=== PATIENT | male | born 1990 | race Caucasian/White ===

== ENCOUNTER 2022-08-15 07:46 | Emergency (ER) | payer MEDICAID ==
[~2022-08-15] VITALS: Ht 185.4 cm; Wt 94.5 kg
[2022-08-15 07:47] VITALS: BP 124/50
--- NOTE | 2022-08-15 07:54 | NUR ---
PT AMB TO BED 12.
--- NOTE | 2022-08-15 08:19 | NUR ---
32M presents to ED with c/o right eyebrow laceration s/p slip and fall last night. Pt reports stepping out of the shower when slipped and fell, laceration to right eyebrow. Pt denies LOC, dizziness, change of vision. Pt reports applying skin glue to laceration last night, denies taking medication today.
[2022-08-15] MEDS ORDERED: ACETAMINOPHEN 325 MG TAB PO ONE (08:25)
--- NOTE | 2022-08-15 08:36 | NUR ---
Patient discharged with v/s stable. Written and verbal after care instructions about head injury, laceration care given and explained. Patient verbalized understanding. Ambulatory with steady gait. All questions addressed prior to discharge. Advised to follow up with PMD.
== END 2022-08-15 09:36 | disposition home or self-care (01) ==
LOC: MED 07:46
DX: S01.111A Laceration without foreign body of right eyelid and periocular area, initial encounter (principal); W18.30XA Fall on same level, unspecified, initial encounter; Y93.89 Activity, other specified; Y92.89 Other specified places as the place of occurrence of the external cause; Y99.8 Other external cause status
CPT/HCPCS: 99282

== ENCOUNTER 2022-09-20 11:56 | Inpatient (IN) | payer MEDICAID ==
[~2022-09-20] VITALS: Ht 180.3 cm; Wt 94.8 kg
[2022-09-20 11:57] VITALS: BP 101/55
[2022-09-20] MEDS ORDERED: levETIRAcetam 1,000 MG in NACL 0.9% 100 ML IV ONE (12:35)
[2022-09-20] MEDS ORDERED: NACL 0.9% 1,000 ML IV ONE (12:35)
--- NOTE | 2022-09-20 12:37 | NUR ---
SHADI SWAB COLLECTED AND WALKED TO LAB
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
[2022-09-20 13:02] LABS: BASOPHILS % (AUTO) 0.1 % (0.0-2.0); HEMATOCRIT 43.5 % (36-52); HEMOGLOBIN 14.6 g/dL (12.0-18.0); LYMPHOCYTES # (AUTO) 0.5 K/uL (2.0-11.5); LYMPHOCYTES % (AUTO) 5.3 % (20.5-51.1); MEAN CORPUSCULAR HEMOGLOBIN 33 pg (27-31); MEAN CORPUSCULAR HGB CONC 34 g/dL (33-37); MEAN CORPUSCULAR VOLUME 96.6 fL (80-94); MONOCYTES # (AUTO) 0.4 K/uL (0.8-1.0); MONOCYTES % (AUTO) 4.2 % (1.7-9.3); NEUTROPHILS # (AUTO) 7.8 K/uL (1.8-7.7); NEUTROPHILS % (AUTO) 90.4 % (42.2-75.2); PLATELET COUNT (AUTO) 123 K/uL (140-450); RED CELL DISTRIBUTION WIDTH 12.4 % (11.6-13.7); WHITE BLOOD COUNT (AUTO) 8.6 K/uL (4.8-10.8)
[2022-09-20 13:28] LABS: ALBUMIN 3.8 g/dL (3.4-5.0); ANION GAP 12.5 (8-16); CARBON DIOXIDE 25.5 mmol/L (21-32); CREATININE 0.9 mg/dL (0.6-1.3); TOTAL BILIRUBIN 0.5 mg/dL (0.0-1.0)
[2022-09-20] MEDS ORDERED: LEVE500T9 PO (14:08)
--- NOTE | 2022-09-20 14:18 | NUR ---
PATIENT OPENING EYES SPONTANEOUSLY, WITHDRAWING FROM PAIN, NOT ANSWERING QUESTIONS AT THIS TIME.
[2022-09-20] MEDS ORDERED: KEP500 PO (14:30)
--- NOTE | 2022-09-20 14:52 | NUR ---
PATIENT UNABLE TO PROVIDE URINE AT THIS TIME, DR. VÁSQUEZ MADE AWARE
--- NOTE | 2022-09-20 15:05 | NUR ---
PATIENT AWAKE AND ORIENTED X4, ANSWERING QUESTIONS APPROPRIATELY, DENIES ANY MEDICAL COMPLAINTS AT THIS TIME.
--- NOTE | 2022-09-20 18:00 | NUR ---
PATIENT PROVIDED WITH DINNER TRAY, STATES "IM NOT HUNGRY RIGHT NOW." TRAY LEFT WITHIN REACH OF PATIENT, ALL NEEDS MET AT THIS TIME.
[2022-09-20] MEDS ORDERED: LORazepam 2 MG/ML VIAL IVP PRN (18:10)
[2022-09-20] MEDS ORDERED: DEXT 5% /NACL 0.9% 1,000 ML IV SCH (18:20)
[2022-09-20] MEDS ORDERED: DOCUSATE SODIUM 100 MG GELCAP PO PRN (18:20)
[2022-09-20] MEDS ORDERED: POTASSIUM CHLORIDE 10 MEQ TABER PO PRN (18:20)
[2022-09-20] MEDS ORDERED: ACETAMINOPHEN 325 MG TAB PO PRN (18:20)
[2022-09-20] MEDS ORDERED: guaiFENesin DM 200/20 MG-10 ML 10 ML UDC PO PRN (18:20)
[2022-09-20] MEDS ORDERED: ONDANSETRON 4 MG/2 ML VIAL IM/IVP PRN (18:20)
[2022-09-20] MEDS ORDERED: HYDROcodone/APAP 7.5/325 MG 1 TAB PO PRN (18:20)
[2022-09-20] MEDS ORDERED: ZOLPIDEM 5 MG TAB PO PRN (18:20)
[2022-09-20 18:51] LABS: PROTHROMBIN TIME 10.5 secs (10.8-13.4)
[2022-09-20 18:59] LABS: AMYLASE 181 U/L (25-115); CHOL/HDL RATIO 2.1 (1-4.5); FREE T4 (FREE THYROXINE) 0.88 ng/dL (0.76-1.46); HDL CHOLESTEROL 63 mg/dL (40-60); LDL (CALC) 61 mg/dL (60-100); LIPASE 68 U/L (73-393); MAGNESIUM 1.8 mg/dL (1.8-2.4); PHOSPHORUS 3.2 mg/dL (2.5-4.9); THYROID STIMULATING HORMONE 0.59 uIU/mL (0.34-3.74); TRIGLYCERIDES 36 mg/dL (30-150)
[2022-09-20 19:00] LABS: APPEARANCE,URINE CLOUDY (CLEAR); BILIRUBIN,URINE NEGATIVE (NEGATIVE); BLOOD, URINE NEGATIVE (NEGATIVE); COLOR,URINE AMBER (YELLOW); LEUKOCYTE ESTERASE ,URINE NEGATIVE (NEGATIVE); NITRITE, URINE NEGATIVE (NEGATIVE); PH,URINE 5.5 (5.0-9.0); UGLUCOSE NEGATIVE (NEGATIVE)
[2022-09-20 19:09] LABS: BARBITURATE, URINE NEGATIVE ng/ml (NEG <=200); BENZODIAZEPINE, URINE NEGATIVE ng/mL (NEG <=200)
[2022-09-20 19:10] LABS: CANNABINOID, URINE POSITIVE ng/mL (NEG <=50); COCAINE, URINE NEGATIVE ng/mL (NEG <=300); OPIATE, URINE NEGATIVE ng/mL (NEG <=2000); PHENCYCLIDINE SCREEN,URINE NEGATIVE ng/mL (NEG <=25)
--- NOTE | 2022-09-20 19:26 | NUR ---
Pt report given to BRITTANEY CONDON. Transfer of care at this time.
[2022-09-20] MEDS ORDERED: levETIRAcetam 500 MG TAB PO SCH (21:00)
[2022-09-20 22:00] VITALS: BP 115/51
--- NOTE | 2022-09-20 22:24 | NUR ---
Patient will be admitted to care of [facility]. Admited to [facility]. Will go to [id number]. Belongings list completed. Report to KATHY.
--- NOTE | 2022-09-20 23:12 | NUR ---
GET THE REPORT FROM ER NURSE, PATIENT IS LYING ON BED, PATIENT IS ALERT ORIENTED X4, NO ANY COMPLAIN OF PAIN OR SHORTNESS OF BREATH AT THIS TIME, VITAL SIGN IS WITHIN THE NORMAL RANGE,ALL FALL AND SEIZURE PRECAUTION ARE IN PLACE, ALL SCHEDULE MEDICATION IS GIVEN PER DOCTOR ORDER, CALL LIGHT IS WITHIN THE REACH, WILL CONTINUE TO MONITOR PATIENT.
--- NOTE | 2022-09-21 00:06 | NUR ---
PATIENT IS LYING ON BED, NO ANY COMPLAIN OF PAIN OR SHORTNESS OF BREATH AT THIS TIME, VITAL SIGN IS WITHIN THE NORMAL RANGE, CALL LIGHT IS WITHIN THE REACH, WILL CONTINUE TO MONITOR PATIENT.
[2022-09-21 04:00] VITALS: BP 121/67
--- NOTE | 2022-09-21 04:08 | NUR ---
VITAL SIGN IS WITHIN THE NORMAL RANGE, NO SEIZURE ACTIVITY NOTED , NO ANY COMPLAIN OF PAIN OR SHORTNESS OF BREATH AT THIS TIME, CALL LIGHT IS WITHIN THE REACH, WILL CONTINUE TO MONITOR PATIENT.
[2022-09-21 06:35] LABS: BASOPHILS % (AUTO) 0.2 % (0.0-2.0); EOSINOPHILS % (AUTO) 0.3 % (0.0-4.0); HEMATOCRIT 44.2 % (36-52); HEMOGLOBIN 15.1 g/dL (12.0-18.0); LYMPHOCYTES # (AUTO) 1.2 K/uL (2.0-11.5); LYMPHOCYTES % (AUTO) 17.1 % (20.5-51.1); MEAN CORPUSCULAR HEMOGLOBIN 33 pg (27-31); MEAN CORPUSCULAR HGB CONC 34 g/dL (33-37); MEAN CORPUSCULAR VOLUME 96.1 fL (80-94); MONOCYTES # (AUTO) 0.3 K/uL (0.8-1.0); MONOCYTES % (AUTO) 4.1 % (1.7-9.3); NEUTROPHILS # (AUTO) 5.5 K/uL (1.8-7.7); NEUTROPHILS % (AUTO) 78.3 % (42.2-75.2); PLATELET COUNT (AUTO) 124 K/uL (140-450); RED CELL DISTRIBUTION WIDTH 12.2 % (11.6-13.7)
--- NOTE | 2022-09-21 07:03 | NUR ---
GAVE THE REPORT TO MORNING NURSE ABIGAIL Smith FOR CONTINUOS OF CARE, PATIENT IS STABLE,SIGNING OFF.
[2022-09-21 07:29] LABS: ANION GAP 8.2 (8-16); CARBON DIOXIDE 30.1 mmol/L (21-32); POTASSIUM 4.3 mmol/L (3.5-5.1)
[2022-09-21 07:30] LABS: CREATININE 0.7 mg/dL (0.6-1.3)
--- NOTE | 2022-09-21 07:41 | NUR ---
PATIENT LEFT AGAINST MEDICAL ADVICE. SPOUSE OF PATIENT PRESENT TO DRIVE PATIENT HOME.
[2022-09-21 08:07] LABS: T4 (THYROXINE) 5.8 ug/dL (4.5-12.0)
[2022-09-21] MEDS ORDERED: PANTOPRAZOLE 40 MG TABEC PO SCH (09:00)
== END 2022-09-21 07:40 | disposition left against medical advice (07) | DRG 53 ==
LOC: MED 11:56 → MTU 18:06
PROVIDERS: ADMIT Family Medicine; ATTEND Family Medicine
DX: G40.901 Epilepsy, unspecified, not intractable, with status epilepticus (principal); Z20.822 Contact with and (suspected) exposure to COVID-19; Z53.29 Procedure and treatment not carried out because of patient's decision for other reasons
CPT/HCPCS: 36415; 80048; 80053; 80305; 81003; 82150; 83036; 83690; 83735; 83880; 84100; 84436; 84439; 84443; 84479; 84484; 85025; 85610; 85730; 87081; 95816; 96365; 99291; J1953

== ENCOUNTER 2023-03-21 10:48 | Inpatient (IN) | payer MEDICAID ==
[~2023-03-21] VITALS: Ht 180.3 cm; Wt 181.4 kg
[~2023-03-21 10:48] MED LIST: KEP500 PO
--- NOTE | 2023-03-21 10:52 | NUR ---
PT PLACE IN BED 09 FROM FAMILY CAR
[2023-03-21 10:53] VITALS: BP 144/67
--- NOTE | 2023-03-21 10:56 | NUR ---
Patient being evaluated by physician at bedside.
[2023-03-21] MEDS ORDERED: LORazepam 2 MG/ML VIAL IVP ONE ×2 (11:15→13:55)
[2023-03-21] MEDS ORDERED: KETOROLAC 15 MG/ML VIAL IVP ONE (11:15)
[2023-03-21 11:20] LABS: BASOPHILS % (AUTO) 0.2 % (0.0-2.0); EOSINOPHILS % (AUTO) 0.2 % (0.0-4.0); HEMATOCRIT 45.4 % (36-52); HEMOGLOBIN 15.4 g/dL (12.0-18.0); LYMPHOCYTES % (AUTO) 28.8 % (20.5-51.1); MEAN CORPUSCULAR HEMOGLOBIN 33 pg (27-31); MEAN CORPUSCULAR HGB CONC 34 g/dL (33-37); MEAN CORPUSCULAR VOLUME 96.2 fL (80-94); MONOCYTES # (AUTO) 0.4 K/uL (0.8-1.0); MONOCYTES % (AUTO) 5.5 % (1.7-9.3); NEUTROPHILS # (AUTO) 4.6 K/uL (1.8-7.7); NEUTROPHILS % (AUTO) 65.3 % (42.2-75.2); PLATELET COUNT (AUTO) 144 K/uL (140-450); RED BLOOD CELL COUNT(AUTO) 4.72 MIL/uL (4.20-6.10); RED CELL DISTRIBUTION WIDTH 12.6 % (11.6-13.7)
--- NOTE | 2023-03-21 11:30 | NUR ---
PT HAD SEIZURE FULL BODY INVOLVMENT, AIRWAY SECURE SUCTIONED SALIVA AND EMESIS, SEIZURE PRECAUTIONS OBSERVED AT ALL TIMES. MD AT BEDSIDE. PT MEDICATED ATIVAN 1MG ATIVAN GIVEN ORDERED. POSITIVE ORAL TRAUMA LEFT LOWER LIP. NO INCONTINENCE OF BOWEL OR BLADDER.
[2023-03-21] MEDS ORDERED: LORazepam 2 MG/ML VIAL ONE (11:31)
--- NOTE | 2023-03-21 11:39 | NUR ---
PT MOVED TO BED 10 VIA [facility]
--- NOTE | 2023-03-21 11:40 | NUR ---
PT SISTER DORYS WOULD LIKE TO BE UPDATED WITH CHANGES DORYS [phone]
[2023-03-21] MEDS ORDERED: ONDANSETRON 4 MG/2 ML VIAL ONE (12:03)
[2023-03-21 12:05] LABS: ALBUMIN 4.3 g/dL (3.4-5.0); ANION GAP 21.4 (8-16); CARBON DIOXIDE 19.6 mmol/L (21-32); CREATININE 0.9 mg/dL (0.6-1.3); TOTAL BILIRUBIN 0.6 mg/dL (0.0-1.0)
[2023-03-21] MEDS ORDERED: ONDANSETRON 4 MG/2 ML VIAL IVP ONE (12:05)
--- NOTE | 2023-03-21 15:13 | NUR ---
PATIENT HAS BEEN SCREENED AND CATEGORIZED LOW NUTRITION RISK. PATIENT WILL BE SEEN WITHIN 7 DAYS OF ADMISSION. 03/28/[address]
[2023-03-21] MEDS ORDERED: ACETAMINOPHEN 325 MG TAB PO PRN (16:15)
[2023-03-21] MEDS ORDERED: ONDANSETRON 4 MG/2 ML VIAL IM/IVP PRN (16:15)
[2023-03-21] MEDS ORDERED: HYDROcodone/APAP 7.5/325 MG 1 TAB PO PRN (16:15)
[2023-03-21] MEDS ORDERED: guaiFENesin DM 200/20 MG-10 ML 10 ML UDC PO PRN (16:15)
[2023-03-21] MEDS ORDERED: NACL 0.9% 1,000 ML IV SCH (16:15)
[2023-03-21] MEDS ORDERED: DOCUSATE SODIUM 100 MG GELCAP PO PRN (16:15)
[2023-03-21] MEDS ORDERED: POTASSIUM CHLORIDE 10 MEQ TABER PO PRN (16:15)
[2023-03-21] MEDS ORDERED: ZOLPIDEM 5 MG TAB PO PRN (16:15)
[2023-03-21] MEDS ORDERED: LORazepam 2 MG/ML VIAL IVP PRN (16:20)
[2023-03-21 16:25] VITALS: BP 99/55
--- NOTE | 2023-03-21 16:25 | NUR ---
PATIENT CAME ON UNIT FROM ER. GEN WEAKNESS, UNABLE TO AMBULATE TO BED AT THIS TIME. IN STABLE CONDITION. IV SITE INTACT, PATENT, AND ON SALINE LOCK. SKIN INTACT. AAOX4, CALM, COOPERATIVE. ORIENTED PATIENT TO ROOM AND CALL LIGHT. PLAN OF CARE DISCUSSED WITH PATIENT. VERBALIZED UNDERSTANDING. SAFETY MEASURES IN PLACE, CALL LIGHT WITHIN REACH. WILL CONTINUE TO MONITOR.
--- NOTE | 2023-03-21 17:13 | NUR ---
LEFT MESSAGE FOR DICK REGARDING STAT EEG ORDERED BY . DICK CALLED BACK @[id number] SPOKE WITH DEEPA PT EEG SCHEDULED FOR 03/22/2023 @9AM
[2023-03-21 17:18] LABS: CHOL/HDL RATIO 2.2 (1-4.5); MAGNESIUM 1.9 mg/dL (1.8-2.4); PHOSPHORUS 3.4 mg/dL (2.5-4.9)
[2023-03-21 17:19] LABS: FREE T4 (FREE THYROXINE) 1.05 ng/dL (0.76-1.46); THYROID STIMULATING HORMONE 0.63 uIU/mL (0.34-3.74)
[2023-03-21 17:29] LABS: PROTHROMBIN TIME 10.7 secs (10.8-13.4)
--- NOTE | 2023-03-21 17:54 | NUR ---
SCHEDULED MEDICATIONS DUE GIVEN. WILL CONTINUE TO MONITOR.
[2023-03-21] MEDS ORDERED: POTASSIUM CHLORIDE 40 MEQ, LIDOCAINE MPF 1% 25 MG in NACL 0.9% 250 ML IV SCH (18:00)
--- NOTE | 2023-03-21 19:27 | NUR ---
GAVE REPORT TO PROCESS DEVELOPER NURSE FOR CONTINUITY OF CARE. PATIENT IN STABLE CONDITION.
[2023-03-21 20:00] VITALS: BP 107/58
--- NOTE | 2023-03-21 20:00 | NUR ---
RECEIVE IN IS ALERT SPEECH IS CLZEAR NOSEIZURE ACTIVITY SEIZURE PRECAUTION IS BEING MAINTAINED
[2023-03-21] MEDS ORDERED: levETIRAcetam 500 MG TAB PO SCH (21:00)
[2023-03-22] VITALS: BP 103/57
[2023-03-22 00:43] LABS: APPEARANCE,URINE SL CLOUDY (CLEAR); BILIRUBIN,URINE NEGATIVE (NEGATIVE); BLOOD, URINE NEGATIVE (NEGATIVE); COLOR,URINE YELLOW (YELLOW); LEUKOCYTE ESTERASE ,URINE NEGATIVE (NEGATIVE); NITRITE, URINE NEGATIVE (NEGATIVE); UGLUCOSE NEGATIVE (NEGATIVE)
[2023-03-22 00:53] LABS: BARBITURATE, URINE NEGATIVE ng/ml (NEG <=200); BENZODIAZEPINE, URINE POSITIVE ng/mL (NEG <=200); CANNABINOID, URINE POSITIVE ng/mL (NEG <=50); COCAINE, URINE NEGATIVE ng/mL (NEG <=300); OPIATE, URINE POSITIVE ng/mL (NEG <=2000); PHENCYCLIDINE SCREEN,URINE NEGATIVE ng/mL (NEG <=25)
[2023-03-22 04:00] VITALS: BP 116/56
--- NOTE | 2023-03-22 06:00 | NUR ---
NO SEIZURE ACTIVITY SPENT A FAIR NIGHT
[2023-03-22 06:55] LABS: BASOPHILS % (AUTO) 0.1 % (0.0-2.0); EOSINOPHILS % (AUTO) 0.5 % (0.0-4.0); HEMATOCRIT 41.1 % (36-52); HEMOGLOBIN 14.3 g/dL (12.0-18.0); LYMPHOCYTES # (AUTO) 1.4 K/uL (2.0-11.5); LYMPHOCYTES % (AUTO) 23.9 % (20.5-51.1); MEAN CORPUSCULAR HEMOGLOBIN 33 pg (27-31); MEAN CORPUSCULAR HGB CONC 35 g/dL (33-37); MEAN CORPUSCULAR VOLUME 95.2 fL (80-94); MONOCYTES # (AUTO) 0.5 K/uL (0.8-1.0); MONOCYTES % (AUTO) 7.7 % (1.7-9.3); NEUTROPHILS % (AUTO) 67.8 % (42.2-75.2); PLATELET COUNT (AUTO) 111 K/uL (140-450); RED BLOOD CELL COUNT(AUTO) 4.31 MIL/uL (4.20-6.10); RED CELL DISTRIBUTION WIDTH 12.7 % (11.6-13.7); WHITE BLOOD COUNT (AUTO) 5.9 K/uL (4.8-10.8)
[2023-03-22 06:57] LABS: ANION GAP 10.2 (8-16); CARBON DIOXIDE 27.3 mmol/L (21-32); CREATININE 0.7 mg/dL (0.6-1.3); POTASSIUM 3.5 mmol/L (3.5-5.1)
--- NOTE | 2023-03-22 07:15 | NUR ---
RECEIVED PT FROM NIGHT NURSE CONTINUITY OF CARE. PT ASLEEP, ON REG DIET, RESPIRATION EVEN AT RM AIR, CALL LIGHT WITHIN REACH. ALL SAFETY MEASURE IN PLACE.
--- NOTE | 2023-03-22 08:00 | NUR ---
Patient's Plan of Care was discussed and reviewed with CUT PLUG PACKER: JOSELIN
[2023-03-22] MEDS ORDERED: PANTOPRAZOLE 40 MG TABEC PO SCH (09:00)
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
[2023-03-24 15:06] LABS: T4 (THYROXINE) 7.1 ug/dL (4.5-12.0)
== END 2023-03-22 09:25 | disposition left against medical advice (07) | DRG 53 ==
LOC: MED 10:48 → MTU 14:51
PROVIDERS: ADMIT Family Medicine; ATTEND Family Medicine
DX: G40.909 Epilepsy, unspecified, not intractable, without status epilepticus (principal); E86.0 Dehydration; E87.6 Hypokalemia; W18.39XA Other fall on same level, initial encounter; Z20.822 Contact with and (suspected) exposure to COVID-19
CPT/HCPCS: 36415; 70450; 80048; 80053; 80173; 80305; 81003; 82150; 83036; 83690; 83735; 83880; 84100; 84436; 84439; 84443; 84479; 85025; 85610; 85730; 87081; 93005; 96374; 96375; 99285; J1885; J2001; J2060; J2405; J3480; J7030